=== PATIENT | female | born 1990 | race African-American/Black ===

== ENCOUNTER → 2019-08-04 23:50 | Observation (INO) ==
[2019-08-04 20:10] LABS: Basophils % 0.1 %; Eosinophils % 0.2 %; Hemoglobin 12.2 g/dL (11.5-15.4); Immature Granulocytes % 0.6 % (0-4); Lymphocytes # 2.2 K/mcL (0.6-4.6); Lymphocytes % 23.3 %; Mean Corpuscular HGB Conc 33.9 g/dL (31.6-35.5); Mean Corpuscular Hemoglobin 28.2 pg (28.0-33.3); Mean Corpuscular Volume 83.3 fL (83.0-100.0); Mean Platelet Volume 10.5 fL (9.4-12.4); Monocytes # 0.7 K/mcL (0.0-1.3); Neutrophils # 6.5 K/mcL (1.6-8.9); Platelet Count 366 K/mcL (140-400); Red Blood Count 4.32 M/mcL (3.82-4.97); Red Cell Distribution Width 12.6 % (11.5-14.5); Segmented Neutrophils % 68.8 %; White Blood Count 9.5 K/mcL (4.3-11.1)
[2019-08-04 20:12] LABS: Bilirubin,Urine Negative (Negative); Blood,Urine Negative (Negative); Clarity,Urine Clear (Clear); Color,Urine Yellow (Yellow); Glucose,Urine (UA) Normal (Normal); Ketones,Urine Negative (Negative); Leukocyte Esterase,Urine Small (Negative); Nitrite,Urine Negative (Negative); PH,Urine 6.5 pH Units (5.0-8.0); Protein,Urine Trace mg/dL (Neg-Trace); Specific Gravity,Urine 1.028 (1.010-1.025); Urobilinogen,Urine Normal (Normal)
[2019-08-04 20:14] LABS: Hyaline Casts,Urine None Seen per lpf (None-Few); RBC,Urine 0-3 per hpf (0-3); Squamous Epithelial Cell,Urine Many per lpf (None-Few)
[2019-08-04 20:21] LABS: Protein/Creatinine Ratio,Urine 0.19 mg/mg (0.00-0.20)
[2019-08-04 20:23] LABS: Calcium Oxalate Crystals,Urine Present; Mucus,Urine Many per lpf (Few)
[2019-08-04 20:24] LABS: Bacteria,Urine Few per hpf (None-Few)
[2019-08-04 20:24] LABS: Alanine Aminotransferase 4 Units/L (7-52); Aspartate Amino Transferase 8 Units/L (13-39); BUN/Creatinine Ratio 13 (6-26); Blood Urea Nitrogen 7 mg/dL (6-20); Lactate Dehydrogenase 135 Units/L (140-271); Uric Acid 4.9 mg/dL (2.3-7.6); eGFR For African Americans > 60 (> 60); eGFR For Non-African Americans > 60 (> 60)
[2019-08-04 21:58] LABS: Amphetamine Screen,Urine Negative ng/mL (Cutoff=1000); Barbiturate Screen,Urine Negative ng/mL (Cutoff=200); Benzodiazepines Screen,Urine Negative ng/mL (Cutoff=200); Cannabinoid Screen,Urine Negative ng/mL (Cutoff = 50); Cocaine Screen,Urine Negative ng/mL (Cutoff= 300); Opiate Screen,Urine Negative ng/mL (Cutoff=300); Phencyclidine Screen,Urine Negative ng/mL (Cutoff=25)
== END | disposition home or self-care (01) ==
LOC: 1NENULAB
PROVIDERS: ADMIT Advanced Practice Midwife; ATTEND Advanced Practice Midwife

== ENCOUNTER 2019-08-18 11:59 | Inpatient (IN) ==
[2019-08-18 11:16] LABS: Basophils % 0.2 %; Eosinophils % 0.2 %; Hematocrit 36.8 % (35.3-44.9); Hemoglobin 12.6 g/dL (11.5-15.4); Immature Granulocytes % 0.8 % (0-4); Lymphocytes # 2.1 K/mcL (0.6-4.6); Lymphocytes % 19.6 %; Mean Corpuscular HGB Conc 34.2 g/dL (31.6-35.5); Mean Corpuscular Hemoglobin 28.4 pg (28.0-33.3); Mean Corpuscular Volume 83.1 fL (83.0-100.0); Monocytes # 0.6 K/mcL (0.0-1.3); Monocytes % 5.5 %; Neutrophils # 7.9 K/mcL (1.6-8.9); Platelet Count 379 K/mcL (140-400); Red Blood Count 4.43 M/mcL (3.82-4.97); Red Cell Distribution Width 13.1 % (11.5-14.5); Segmented Neutrophils % 73.7 %; White Blood Count 10.8 K/mcL (4.3-11.1)
[2019-08-18 11:38] LABS: Protein/Creatinine Ratio,Urine 0.14 mg/mg (0.00-0.20)
[2019-08-18 11:39] LABS: Alanine Aminotransferase 4 Units/L (7-52); Aspartate Amino Transferase 11 Units/L (13-39); BUN/Creatinine Ratio 13 (6-26); Blood Urea Nitrogen 8 mg/dL (6-20); Lactate Dehydrogenase 186 Units/L (140-271); Uric Acid 5.4 mg/dL (2.3-7.6); eGFR For African Americans > 60 (> 60); eGFR For Non-African Americans > 60 (> 60)
[2019-08-18] MEDS ORDERED: miSOPROStoL 25 MCG TABLET PO PRN (12:26)
[2019-08-18] MEDS ORDERED: Ringers Solution, Lactated 1,000 ML ONE ×3 (12:40→17:33)
[2019-08-18] MEDS ORDERED: Calcium Gluconate 1,000 MG/10 ML VIAL IVP PRN ×2 (13:09→23:01)
[2019-08-18] MEDS ORDERED: Magnesium Sulf 20gm/LR 500mL 20 GM/500 ML IV.SOLN IVC SCH ×2 (13:15→23:15)
[2019-08-18] MEDS ORDERED: *HR* FentaNYL (PF) 100 MCG/2 ML VIAL EP ONE (13:25)
[2019-08-18] MEDS ORDERED: Bupivacaine-MPF 0.25% 10 ML VIAL EP ONE (13:25)
[2019-08-18] MEDS ORDERED: EPHEDrine 50 MG/ML VIAL IVP PRN (13:25)
[2019-08-18] MEDS ORDERED: Bupivacaine-MPF 0.25% 10 ML VIAL ONE (13:26)
[2019-08-18] MEDS ORDERED: *HR* FentaNYL (PF) 100 MCG/2 ML VIAL ONE (13:26)
[2019-08-18] MEDS ORDERED: Epidural Premix (fent/bupiv) 110 ML EP SCH (13:30)
[2019-08-18] MEDS ORDERED: Oxytocin 20 units/ LR 1000 mL 20 UNIT/1,000 ML BAG IVC SCH ×2 (19:00→22:49)
[2019-08-18] MEDS ORDERED: Famotidine 20 MG/2 ML VIAL IVP PRN (19:35)
[2019-08-18] MEDS ORDERED: Naloxone 0.4 MG/ML INJ IVP PRN (19:35)
[2019-08-18] MEDS ORDERED: Metoclopramide 10 MG/2 ML VIAL IVP PRN (19:35)
[2019-08-18] MEDS ORDERED: Ringers Solution, Lactated 1,000 ML IVC SCH (19:45)
[2019-08-18] MEDS ORDERED: Benzocaine/Menthol 56 GM AEROSOL SPRAY TP PRN (22:49)
[2019-08-18] MEDS ORDERED: Acetaminophen 325 MG TABLET PO PRN (22:49)
[2019-08-18] MEDS ORDERED: Lanolin 7 G OINT...G. TP PRN (22:49)
[2019-08-18] MEDS ORDERED: Oxytocin 20 units/ LR 1000 mL 20 UNIT/1,000 ML BAG IVC ONE (22:49)
[2019-08-18] MEDS: Ibuprofen 600 MG TABLET PO PRN (23:56)
[2019-08-19] MEDS ORDERED: Famotidine 20 MG/2 ML VIAL IVP ONE (06:03)
[2019-08-19] MEDS: Prenatal Vit/FA 1 EACH TABLET PO SCH (08:43)
[2019-08-19 10:41] LABS: Basophils % 0.2 %; Eosinophils % 0.2 %; Hematocrit 34.5 % (35.3-44.9); Hemoglobin 11.1 g/dL (11.5-15.4); Immature Granulocytes % 0.9 % (0-4); Lymphocytes # 2.1 K/mcL (0.6-4.6); Lymphocytes % 17.4 %; Mean Corpuscular HGB Conc 32.2 g/dL (31.6-35.5); Mean Corpuscular Hemoglobin 28.2 pg (28.0-33.3); Mean Corpuscular Volume 87.6 fL (83.0-100.0); Mean Platelet Volume 10.5 fL (9.4-12.4); Monocytes % 8.1 %; Neutrophils # 8.8 K/mcL (1.6-8.9); Platelet Count 301 K/mcL (140-400); Red Blood Count 3.94 M/mcL (3.82-4.97); Red Cell Distribution Width 13.1 % (11.5-14.5); Segmented Neutrophils % 73.2 %
[2019-08-19 10:59] LABS: Alanine Aminotransferase 3 Units/L (7-52); Aspartate Amino Transferase 10 Units/L (13-39); BUN/Creatinine Ratio 6 (6-26); Blood Urea Nitrogen 4 mg/dL (6-20); Lactate Dehydrogenase 190 Units/L (140-271); Uric Acid 5.3 mg/dL (2.3-7.6); eGFR For African Americans > 60 (> 60); eGFR For Non-African Americans > 60 (> 60)
[2019-08-19] MEDS: Ibuprofen 600 MG TABLET PO PRN (22:02)
[2019-08-20] MEDS: Prenatal Vit/FA 1 EACH TABLET PO SCH (08:02)
[2019-08-20 11:24] VITALS: BP 134/82
== END 2019-08-20 14:00 | disposition home or self-care (01) | DRG 560 ==
LOC: 1NENULAB → 1NENUOBS 23:45
PROVIDERS: ADMIT Obstetrics & Gynecology; ATTEND Obstetrics & Gynecology

== ENCOUNTER 2022-05-02 00:14 | Inpatient (IN) ==
[~2022-05-02 00:14] MED LIST: *HR* Nalbuphine 10 MG/ML AMPUL IV PRN; Azithromycin 500 MG in 0.9 % Sodium Chloride 250 ML IVPB PRN; Famotidine 20 MG/2 ML VIAL IVP PRN; Metoclopramide 10 MG/2 ML VIAL IVP PRN; Naloxone 0.4 MG/ML INJ IVP PRN; Ondansetron 4 MG/2 ML VIAL IVP PRN; Penicillin G Potassium 5,000,000 UNIT in 0.9 % Sodium Chloride Mini Bag 100 ML IVPB ONE
[2022-05-02] MEDS ORDERED: Oxytocin 30 UNIT/503 ML BAG IVC SCH ×3 (00:15→17:28)
[2022-05-02 02:02] LABS: Basophils % 0.2 %; Eosinophils # 0.1 K/mcL (0.0-0.6); Eosinophils % 0.6 %; Hematocrit 37.8 % (35.3-44.9); Hemoglobin 12.6 g/dL (11.5-15.4); Immature Granulocytes % 0.5 % (0-4); Lymphocytes # 2.7 K/mcL (0.6-4.6); Lymphocytes % 22.7 %; Mean Corpuscular HGB Conc 33.3 g/dL (31.6-35.5); Mean Corpuscular Hemoglobin 29.1 pg (28.0-33.3); Mean Corpuscular Volume 87.3 fL (83.0-100.0); Mean Platelet Volume 10.4 fL (9.4-12.4); Monocytes # 0.8 K/mcL (0.0-1.3); Platelet Count 348 K/mcL (140-400); Red Blood Count 4.33 M/mcL (3.82-4.97); Red Cell Distribution Width 13.4 % (11.5-14.5); White Blood Count 11.7 K/mcL (4.3-11.1)
[2022-05-02] MEDS: Ringers Solution, Lactated 1,000 ML IVC SCH ×3 (02:03→14:08)
[2022-05-02 02:11] LABS: Creatinine,Urine 213 mg/dL; Protein/Creatinine Ratio,Urine 0.16 mg/mg (0.00-0.20)
[2022-05-02] MEDS ORDERED: EPHEDrine sulfate 50 MG/10 ML VIAL IVP PRN (02:11)
[2022-05-02] MEDS ORDERED: Ropivacaine/PF 0.2% 20 ML VIAL EP ONE (02:11)
[2022-05-02] MEDS ORDERED: *HR* FentaNYL (PF) 100 MCG/2 ML VIAL EP ONE (02:11)
[2022-05-02 02:12] LABS: Amphetamine Screen,Urine Negative ng/mL (Cutoff=1000); Barbiturate Screen,Urine Negative ng/mL (Cutoff=200); Cannabinoid Screen,Urine Negative ng/mL (Cutoff = 50); Cocaine Screen,Urine Negative ng/mL (Cutoff= 300); Opiate Screen,Urine Negative ng/mL (Cutoff=300); Phencyclidine Screen,Urine Negative ng/mL (Cutoff=25)
[2022-05-02] MEDS ORDERED: Epidural Premix (fent/bupiv) 110 ML EP SCH (02:15)
[2022-05-02 02:22] LABS: Alanine Aminotransferase 8 Units/L (7-52); Aspartate Amino Transferase 21 Units/L (13-39); BUN/Creatinine Ratio 17 (6-26); Blood Urea Nitrogen 12 mg/dL (6-20); Glucose 80 mg/dL (70-105); Lactate Dehydrogenase 124 Units/L (140-271); Uric Acid 6.4 mg/dL (2.3-7.6)
[2022-05-02 03:24] LABS: Creatinine,Urine 251 mg/dL; Protein/Creatinine Ratio,Urine 0.17 mg/mg (0.00-0.20)
[2022-05-02 03:27] LABS: Amphetamine Screen,Urine Negative ng/mL (Cutoff=1000); Barbiturate Screen,Urine Negative ng/mL (Cutoff=200); Cannabinoid Screen,Urine Negative ng/mL (Cutoff = 50); Cocaine Screen,Urine Negative ng/mL (Cutoff= 300); Opiate Screen,Urine Negative ng/mL (Cutoff=300); Phencyclidine Screen,Urine Negative ng/mL (Cutoff=25)
[2022-05-02] MEDS: Penicillin G Potassium 2,500,000 UNIT/105 ML MLS IVPB SCH ×3 (06:24→14:08)
[2022-05-02] MEDS ORDERED: OXYTOCIN/RINGERS LACTATE 10 UNIT/166.6 ML BAG IVC ONE (17:28)
[2022-05-02] MEDS ORDERED: Ondansetron ODT 4 MG TAB.RAPDIS SL PRN (17:28)
[2022-05-02] MEDS ORDERED: Benzocaine/Menthol 56 GM AEROSOL SPRAY TP PRN (17:28)
[2022-05-02] MEDS ORDERED: Lanolin 7 G OINT...G. TP PRN (17:28)
[2022-05-02] MEDS: Ibuprofen 600 MG TABLET PO SCH (18:25)
[2022-05-02] MEDS: Acetaminophen 325 MG TABLET PO SCH (18:25)
[2022-05-03 04:12] VITALS: O2SAT 97
[2022-05-03] MEDS: Ibuprofen 600 MG TABLET PO SCH ×2 (04:36→14:03)
[2022-05-03] MEDS: Acetaminophen 325 MG TABLET PO SCH ×2 (04:40→18:06)
[2022-05-03 07:31] VITALS: BP 119/80; PULSE 73; TEMP 98.7
[2022-05-03 08:58] LABS: Basophils % 0.3 %; Eosinophils # 0.1 K/mcL (0.0-0.6); Eosinophils % 1.1 %; Hematocrit 35.6 % (35.3-44.9); Hemoglobin 11.6 g/dL (11.5-15.4); Immature Granulocytes % 0.5 % (0-4); Lymphocytes % 32.2 %; Mean Corpuscular HGB Conc 32.6 g/dL (31.6-35.5); Mean Corpuscular Hemoglobin 29.4 pg (28.0-33.3); Mean Corpuscular Volume 90.1 fL (83.0-100.0); Mean Platelet Volume 10.5 fL (9.4-12.4); Monocytes # 0.7 K/mcL (0.0-1.3); Monocytes % 7.5 %; Neutrophils # 5.5 K/mcL (1.6-8.9); Platelet Count 287 K/mcL (140-400); Red Blood Count 3.95 M/mcL (3.82-4.97); Red Cell Distribution Width 13.6 % (11.5-14.5); Segmented Neutrophils % 58.4 %; White Blood Count 9.4 K/mcL (4.3-11.1)
[2022-05-03] MEDS ORDERED: Prenatal Vit/FA 1 EACH TABLET PO SCH (09:00)
[2022-05-03 11:01] LABS: Amphetamine Screen,Urine Negative ng/mL (Cutoff=1000); Barbiturate Screen,Urine Negative ng/mL (Cutoff=200); Benzodiazepines Screen,Urine Negative ng/mL (Cutoff=200); Cannabinoid Screen,Urine Negative ng/mL (Cutoff = 50); Cocaine Screen,Urine Negative ng/mL (Cutoff= 300); Opiate Screen,Urine Negative ng/mL (Cutoff=300); Phencyclidine Screen,Urine Negative ng/mL (Cutoff=25)
[2022-05-04 14:43] LABS: Benzodiazepines Screen,Urine Negative ng/mL (Cutoff=200)
[2022-05-04 14:45] LABS: Benzodiazepines Screen,Urine Negative ng/mL (Cutoff=200)
== END 2022-05-03 18:30 | disposition home or self-care (01) | DRG 560 ==
LOC: 1NENULAB → 1NENUOBS 17:29
PROVIDERS: ADMIT Advanced Practice Midwife; ATTEND Advanced Practice Midwife